=== PATIENT | female | born 1960 | race Caucasian/White ===

== ENCOUNTER 2016-07-10 21:09 | Observation (INO) | payer OTHER ==
[2016-07-10] MEDS ORDERED: NS 1,000 ML IV ONE (21:36)
[2016-07-10] MEDS ORDERED: IOPAMIDOL (ISOVUE-300) 100 ML BTL IV ONE (21:40)
[2016-07-10 21:49] LABS: % IMMATURE GRANULYOCYTES 0.3 % (0.0-1.1); ABSOLUTE IMMATURE GRANULOCYTES 0.03 10^3/uL (0.00-0.10); ADD DIFF? NO; ADD MORPH? NO; ADD SCAN? NO; ATYPICAL LYMPHOCYTE FLAG 10 (0-99); FRAGMENT RBC FLAG 0 (0-99); HEMATOCRIT 40.8 % (38.0-47.0); HEMOGLOBIN 14.2 g/dL (12.6-16.3); LEFT SHIFT FLG 0 (0-99); LIPEMIA HEMOLYSIS FLAG 90 (0-99); MEAN CELL HEMOGLOBIN 30.7 pg (27.9-34.1); MEAN CELL HEMOGLOBIN CONCENTR. 34.8 g/dL (32.4-36.7); MEAN CELL VOLUME 88.1 fL (81.5-99.8); MEAN PLATELET VOLUME 9.9 fL (8.7-11.7); PLATELET CLUMPS FLAG 0 (0-99); PLATELET COUNT 284 10^3/uL (150-400); RED BLOOD CELL COUNT 4.63 10^6/uL (4.18-5.33); RED CELL DISTRIBUTION WIDTH 12.4 % (11.5-15.2)
--- NOTE | 2016-07-10 21:51 | UCPHY ---
H & P Patient Type: Established Chief Complaint Nursing Narrative: Pt. states generalized abd pain started yesterday afternoon with chills that has continued today. Denies n/v/d as well as urinary s/s's. Today had nml stool. abd pain still generalized but chills have resolved. Time Seen by Provider: 07/10/16 21:27 HPI/ROS: Chief Complaint: Abdominal pain HPI: 55-year-old woman started having abdominal pain yesterday afternoon which has persisted to the day. It is diffuse dull aching, worse an 8/10. Currently a 4/10. Some improvement with ibuprofen. No nausea or vomiting or diarrhea. No constipation. No urinary urgency or frequency. Patient does not have a history of the same. No fevers or chills. Pain is worsened with walking and going over bumps improved no chest pain or shortness of breath. No history of prior surgeries. Patient is postmenopausal. ROS: 10 point Review of Systems is negative except as noted in the HPI. PMH: None Medications: None Allergies: No known drug allergies Social History: No smoking, no alcohol, no recreational drug use Family History: non-contributory Physical Exam: Gen: Awake, Alert, No Distress HEENT: Nose: no rhinorrhea Eyes: PERRLA, EOMI Mouth: Moist mucosa Neck: Supple, no JVD Chest: nontender, lungs clear to auscultation Heart: S1, S2 normal, no murmur Abd: Soft, tenderness in the left upper left lower and suprapubic region, most pronounced in the left lower quadrant. voluntary guarding, no rebound Back: no CVA tenderness, no midline tenderness Ext: no edema, non-tender Skin: no rash Neuro: CN II-XII intact, Sensation grossly intact, Strength 5/5 in bilateral upper and lower extremities - Medical/Surgical History Hx Asthma: No Hx Chronic Respiratory Disease: No Hx Diabetes: No Hx Cardiac Disease: No Hx Renal Disease: No Hx Cirrhosis: No Hx Alcoholism: No Hx HIV/AIDS: No Hx Splenectomy or Spleen Trauma: No Other PMH: TONSILECTOMY. SEASONAL ALLERGIES - Family History Significant Family History: No pertinent family hx - Social History Smoking Status: Never smoked Constitutional: Initial Vital Signs Temperature (C) 36.8 C 07/10/16 21:18 Heart Rate 94 07/10/16 21:18 Respiratory Rate 16 07/10/16 21:18 Blood Pressure 126/82 H 07/10/16 21:18 O2 Sat (%) 97 07/10/16 21:18 O2 Delivery Mode Room Air Allergies/Adverse Reactions: No Known Allergies Allergy (Verified 07/10/16 21:24) Home Medications: Medication Instructions Recorded NO HOME MEDS 12/10/09 Medical Decision Making - Diagnostics Imaging Results: CT abdomen pelvis interpreted by Dr. Stratton consistent with diverticulitis of the descending and sigmoid colon. Incidental finding of a large mass in the pelvis in the anterior aspect of the uterus which measures 12 cm x 10 cm x 7 cm. Imaging: Discussed imaging studies w/ bingo caller Radiologist ED Course/Re-evaluation: Patient with abdominal pain and clinically diverticulitis. CT scan confirms this. No evidence of perforation or abscess. Was concerning though she has a large pelvic mass. I have discussed with Dr. Mayorga, hospitalist. She will accept the patient transfer to [facility] for further workup and evaluation. - Data Points Laboratory Results: Laboratory Results 07/10/16 21:41 07/10/16 21:41 07/10/16 07/10/16 07/10/16 21:47 21:41 21:41 WBC RBC Hgb POC Hgb 15.0 gm/dL gm/dL (12.3-15.9) Hct POC Hct 44 % % (35.5-47.5) MCV MCH MCHC RDW Plt Count MPV Neut % (Auto) Lymph % (Auto) [place] % (Auto) Eos % (Auto) Baso % (Auto) Nucleat RBC Rel Count Absolute Neuts (auto) Absolute Lymphs (auto) Absolute Monos (auto) Absolute Eos (auto) Absolute Basos (auto) Absolute Nucleated RBC Immature Gran % Immature Gran # POC Sodium 141 mEq/L mEq/L (134-144) Sodium 140 mEq/L mEq/L (134-144) POC Potassium 3.3 mEq/L mEq/L (3.3-5.0) Potassium 3.6 mEq/L mEq/L (3.5-5.2) POC Chloride 104 mEq/L mEq/L (96-108) Chloride 101 mEq/L mEq/L (97-110) Carbon Dioxide 25 mEq/l mEq/l (22-31) Anion Gap 14 mEq/L mEq/L (8-16) POC BUN 15 mg/dL mg/dL (7-23) BUN 15 mg/dL mg/dL (7-23) Creatinine 0.8 mg/dL mg/dL (0.6-1.0) POC Creatinine 0.8 mg/dL mg/dL (0.6-1.2) Estimated GFR > 60 Glucose 106 mg/dL H mg/dL (70-100) POC Glucose 111 mg/dL H mg/dL (70-100) Calcium 9.4 mg/dL mg/dL (8.5-10.4) Total Bilirubin 0.9 mg/dL mg/dL (0.1-1.4) Conjugated Bilirubin 0.3 mg/dL mg/dL (0.0-0.5) Unconjugated Bilirubin 0.6 mg/dL mg/dL (0.0-1.1) AST 34 IU/L IU/L (14-46) ALT 47 IU/L IU/L (9-52) Alkaline Phosphatase 73 IU/L IU/L (38-126) Total Protein 6.6 g/dL g/dL (6.3-8.2) Albumin 3.6 g/dL g/dL (3.5-5.0) Lipase 78.0 IU/L IU/L (23-300) Urine Color YELLOW Urine Appearance HAZY Urine pH 5.5 (5.0-7.5) Ur Specific [place] 1.015 (1.002-1.030) Urine Protein NEGATIVE (NEGATIVE) Urine Ketones TRACE H (NEGATIVE) Urine Blood 1+ H (NEGATIVE) Urine Nitrate NEGATIVE (NEGATIVE) Urine Bilirubin NEGATIVE (NEGATIVE) Urine Urobilinogen 0.2 EU EU (0.2-1.0) Ur Leukocyte Esterase NEGATIVE (NEGATIVE) Urine RBC 1-3 /hpf /hpf (0-3) Urine WBC NONE SEEN /hpf /hpf (0-3) Ur Epithelial Cells 1+ /lpf /lpf (NONE-1+) Urine Bacteria TRACE /hpf H /hpf (NONE SEEN) Urine Mucus 2+ /lpf H /lpf (NONE-1+) Urine Glucose NEGATIVE (NEGATIVE) 07/10/16 21:41 WBC 8.87 10^3/uL 10^3/uL (3.80-9.50) RBC 4.63 10^6/uL 10^6/uL (4.18-5.33) Hgb 14.2 g/dL g/dL (12.6-16.3) POC Hgb Hct 40.8 % % (38.0-47.0) POC Hct MCV 88.1 fL fL (81.5-99.8) MCH 30.7 pg pg (27.9-34.1) MCHC 34.8 g/dL g/dL (32.4-36.7) RDW 12.4 % % (11.5-15.2) Plt Count 284 10^3/uL 10^3/uL (150-400) MPV 9.9 fL fL (8.7-11.7) Neut % (Auto) 63.5 % % (39.3-74.2) Lymph % (Auto) 24.4 % % (15.0-45.0) [place] % (Auto) 10.8 % % (4.5-13.0) Eos % (Auto) 0.5 % L % (0.6-7.6) Baso % (Auto) 0.5 % % (0.3-1.7) Nucleat RBC Rel Count 0.0 % % (0.0-0.2) Absolute Neuts (auto) 5.64 10^3/uL 10^3/uL (1.70-6.50) Absolute Lymphs (auto) 2.16 10^3/uL 10^3/uL (1.00-3.00) Absolute Monos (auto) 0.96 10^3/uL H 10^3/uL (0.30-0.80) Absolute Eos (auto) 0.04 10^3/uL 10^3/uL (0.03-0.40) Absolute Basos (auto) 0.04 10^3/uL 10^3/uL (0.02-0.10) Absolute Nucleated RBC 0.00 10^3/uL 10^3/uL (0-0.01) Immature Gran % 0.3 % % (0.0-1.1) Immature Gran # 0.03 10^3/uL 10^3/uL (0.00-0.10) POC Sodium Sodium POC Potassium Potassium POC Chloride Chloride Carbon Dioxide Anion Gap POC BUN BUN Creatinine POC Creatinine Estimated GFR Glucose POC Glucose Calcium Total Bilirubin Conjugated Bilirubin Unconjugated Bilirubin AST ALT Alkaline Phosphatase Total Protein Albumin Lipase Urine Color Urine Appearance Urine pH Ur Specific [place] Urine Protein Urine Ketones Urine Blood Urine Nitrate Urine Bilirubin Urine Urobilinogen Ur Leukocyte Esterase Urine RBC Urine WBC Ur Epithelial Cells Urine Bacteria Urine Mucus Urine Glucose Medications Given: Discontinued Medications Sodium Chloride (Ns) 1,000 mls @ 0 mls/hr IV ONCE ONE PRN Reason: Wide Open Stop: 07/10/16 21:37 Last Admin: 07/10/16 22:08 Dose: 1,000 mls Point of Care Test Results: 07/10/16 21:47 POC Sodium 141 POC Potassium 3.3 POC Chloride 104 POC BUN 15 POC Creatinine 0.8 POC Glucose 111 H Departure - Departure Disposition: [facility] Inpatient Acute Clinical Impression: Diverticulitis, Pelvic mass Condition: Fair Referrals: NONE *PRIMARY CARE P,. [Primary Care Provider] - As per Instructions - PQRS PQRS Measurement: NA
[2016-07-10 21:55] LABS: COLOR YELLOW; LEUKOCYTE ESTERASE,URINE NEGATIVE (NEGATIVE); NITRITE,URINE NEGATIVE (NEGATIVE); PH,URINE 5.5 (5.0-7.5)
[2016-07-10 22:03] LABS: ALANINE AMINOTRANSFERASE 47 IU/L (9-52); ALBUMIN 3.6 g/dL (3.5-5.0); ALKALINE PHOSPHATASE 73 IU/L (38-126); ANION GAP 14 mEq/L (8-16); ASPARTATE AMINOTRANSFERASE 34 IU/L (14-46); BILIRUBIN,TOTAL 0.9 mg/dL (0.1-1.4); BILIRUBIN-CONJUGATED 0.3 mg/dL (0.0-0.5); BILIRUBIN-UNCONJUGATED 0.6 mg/dL (0.0-1.1); CALCIUM 9.4 mg/dL (8.5-10.4); CARBON DIOXIDE 25 mEq/l (22-31); CHLORIDE 101 mEq/L (97-110); CREATININE 0.8 mg/dL (0.6-1.0); GLOMERULAR FILTRATION RATE > 60; GLUCOSE 106 mg/dL (70-100); POTASSIUM 3.6 mEq/L (3.5-5.2); SODIUM 140 mEq/L (134-144); TOTAL PROTEIN 6.6 g/dL (6.3-8.2)
[2016-07-10 22:04] LABS: BACTERIA TRACE /hpf (NONE SEEN); MUCUS 2+ /lpf (NONE-1+); WBC,URINE NONE SEEN /hpf (0-3)
[2016-07-11] MEDS ORDERED: ONDANSETRON 4 MG/2 ML VIAL IVP PRN (00:41)
[2016-07-11] MEDS ORDERED: ACETAMINOPHEN 325 MG TAB PO PRN (00:41)
[2016-07-11] MEDS ORDERED: IBUPROFEN 200 MG TAB PO PRN (00:41)
[2016-07-11] MEDS ORDERED: ONDANSETRON DISINTEGRATING 4 MG TAB PO PRN (00:41)
[2016-07-11] MEDS ORDERED: HYDROCODONE/APAP 5/325 TAB PO PRN (00:41)
[2016-07-11] MEDS: metroNIDAZOLE 500 MG TAB PO SCH ×2 (00:48→06:16)
[2016-07-11] MEDS: CIPROFLOXACIN 500 MG TAB PO SCH ×2 (00:48→09:52)
--- NOTE | 2016-07-11 00:48 | PDGENHP ---
History and Physical - Chief Complaint abdominal pain - History of Present Illness Patient is a 55 year old female with no significant past medical history who [place] [facility] [place] of [place]. Patient states her symptoms started yesterday with diffuse, crampy, intermittent abdominal discomfort and generalized malaise. By the evening, she had also developed chills and a subjective fever. This morning, she no longer felt febrile but did feel unwell and stayed home from work. She denies any associated nausea, vomiting, diarrhea or constipation, had a normal BM earlier in the day. By this evening, given the persistence of her symptoms, she decided to go to the [facility] [place]. Of note, patient reports last normal exam was 2 years ago, last colonoscopy was 5 years ago and normal. She is post-menopausal for about 5-6 years, denies any signs of post-menopausal bleeding. Her last [employer] exam was about 3-4 years ago, after which her [employer]INE[employer] retired and she hadn't established with a new one since that time. She denies any recent weight loss, night sweats, changes in urination or bowel movements. On arrival [place] [facility] [place] patient was afebrile and hemodynamically stable. Labs, including CBC, BMP, LFTs, were within normal limits. CT abd/pelvis was then obtained and revealed mild descending and sigmoid colon diverticulitis. CT also incidentally revealed a large heterogenous, lobulated anterior pelvic mass. Given these findings, she was transferred to [facility] for further evaluation. History Information - Allergies/Home Medication List Allergies/Adverse Reactions: No Known Allergies Allergy (Verified 07/10/16 21:24) Home Medications: NO HOME MEDS 12/10/09 [Last Taken Unknown] I have personally reviewed and updated: family history, medical history, social history, surgical history - Past Medical History no pertinent PMH - Surgical History Additional surgical history: tonsillectomy - Family History Additional family history: M: HLD. F: prostate ca, alzheimer's disease - Social History Smoking Status: Never smoked Alcohol Use: None Drug Use: None Additional social history: Patient lives with her , has 3 children. Works as a CPA. Review of Systems ROS: 10pt was reviewed & negative except for what was stated in HPI & below Physical Exam Temp Pulse Resp BP Pulse Ox 37.0 C 115 H 16 122/51 H 93 07/10/16 23:50 07/10/16 23:50 07/10/16 23:50 07/10/16 23:50 07/10/16 23:50 Constitutional: no apparent distress, appears nourished, not in pain Eyes: PERRL, anicteric sclera, EOMI Ears, Nose, Mouth, Throat: moist mucous membranes, hearing normal, ears appear normal, no oral mucosal ulcers Cardiovascular: regular rate and rhythym, no murmur, rub, or gallop, pulses symmetric bilaterally, No JVD, No edema Peripheral Pulses: 2+: dorsalis-pedis (R), dorsalis-pedis (L) Respiratory: no respiratory distress, no rales or rhonchi, clear to auscultation Gastrointestinal: normoactive bowel sounds, tenderness (mild tenderness/ guarding in LLQ) Genitourinary: no bladder fullness, no bladder tenderness Skin: warm, normal color, no rashes or abrasions, no fluctuance, no induration, No mottled Musculoskeletal: full muscle strength, no muscle tenderness, normal joint ROM, no joint effusions Neurologic: AAOx3, sensation intact bilaterally, CN II-XII Intact, No weakness, No numbness, No facial droop Psychiatric: interacting appropriately, not anxious, not encephalopathic, thought process linear Lab Data & Imaging Review 07/10/16 21:41 07/10/16 21:41 WBC 8.87 10^3/uL (3.80-9.50) 07/10/16 21:41 RBC 4.63 10^6/uL (4.18-5.33) 07/10/16 21:41 Hgb 14.2 g/dL (12.6-16.3) 07/10/16 21:41 POC Hgb 15.0 gm/dL (12.3-15.9) 07/10/16 21:47 Hct 40.8 % (38.0-47.0) 07/10/16 21:41 POC Hct 44 % (35.5-47.5) 07/10/16 21:47 MCV 88.1 fL (81.5-99.8) 07/10/16 21:41 MCH 30.7 pg (27.9-34.1) 07/10/16 21:41 MCHC 34.8 g/dL (32.4-36.7) 07/10/16 21:41 RDW 12.4 % (11.5-15.2) 07/10/16 21:41 Plt Count 284 10^3/uL (150-400) 07/10/16 21:41 MPV 9.9 fL (8.7-11.7) 07/10/16 21:41 Neut % (Auto) 63.5 % (39.3-74.2) 07/10/16 21:41 Lymph % (Auto) 24.4 % (15.0-45.0) 07/10/16 21:41 [place] % (Auto) 10.8 % (4.5-13.0) 07/10/16 21:41 Eos % (Auto) 0.5 % (0.6-7.6) L 07/10/16 21:41 Baso % (Auto) 0.5 % (0.3-1.7) 07/10/16 21:41 Nucleat RBC Rel Count 0.0 % (0.0-0.2) 07/10/16 21:41 Absolute Neuts (auto) 5.64 10^3/uL (1.70-6.50) 07/10/16 21:41 Absolute Lymphs (auto) 2.16 10^3/uL (1.00-3.00) 07/10/16 21:41 Absolute Monos (auto) 0.96 10^3/uL (0.30-0.80) H 07/10/16 21:41 Absolute Eos (auto) 0.04 10^3/uL (0.03-0.40) 07/10/16 21:41 Absolute Basos (auto) 0.04 10^3/uL (0.02-0.10) 07/10/16 21:41 Absolute Nucleated RBC 0.00 10^3/uL (0-0.01) 07/10/16 21:41 Immature Gran % 0.3 % (0.0-1.1) 07/10/16 21:41 Immature Gran # 0.03 10^3/uL (0.00-0.10) 07/10/16 21:41 POC Sodium 141 mEq/L (134-144) 07/10/16 21:47 Sodium 140 mEq/L (134-144) 07/10/16 21:41 POC Potassium 3.3 mEq/L (3.3-5.0) 07/10/16 21:47 Potassium 3.6 mEq/L (3.5-5.2) 07/10/16 21:41 POC Chloride 104 mEq/L (96-108) 07/10/16 21:47 Chloride 101 mEq/L (97-110) 07/10/16 21:41 Carbon Dioxide 25 mEq/l (22-31) 07/10/16 21:41 Anion Gap 14 mEq/L (8-16) 07/10/16 21:41 POC BUN 15 mg/dL (7-23) 07/10/16 21:47 BUN 15 mg/dL (7-23) 07/10/16 21:41 Creatinine 0.8 mg/dL (0.6-1.0) 07/10/16 21:41 POC Creatinine 0.8 mg/dL (0.6-1.2) 07/10/16 21:47 Estimated GFR > 60 07/10/16 21:41 Glucose 106 mg/dL (70-100) H 07/10/16 21:41 POC Glucose 111 mg/dL (70-100) H 07/10/16 21:47 Calcium 9.4 mg/dL (8.5-10.4) 07/10/16 21:41 Total Bilirubin 0.9 mg/dL (0.1-1.4) 07/10/16 21:41 Conjugated Bilirubin 0.3 mg/dL (0.0-0.5) 07/10/16 21:41 Unconjugated Bilirubin 0.6 mg/dL (0.0-1.1) 07/10/16 21:41 AST 34 IU/L (14-46) 07/10/16 21:41 ALT 47 IU/L (9-52) 07/10/16 21:41 Alkaline Phosphatase 73 IU/L (38-126) 07/10/16 21:41 Total Protein 6.6 g/dL (6.3-8.2) 07/10/16 21:41 Albumin 3.6 g/dL (3.5-5.0) 07/10/16 21:41 Lipase 78.0 IU/L (23-300) 07/10/16 21:41 Urine Color YELLOW 07/10/16 21:41 Urine Appearance HAZY 07/10/16 21:41 Urine pH 5.5 (5.0-7.5) 07/10/16 21:41 Ur Specific [place] 1.015 (1.002-1.030) 07/10/16 21:41 Urine Protein NEGATIVE (NEGATIVE) 07/10/16 21:41 Urine Ketones TRACE (NEGATIVE) H 07/10/16 21:41 Urine Blood 1+ (NEGATIVE) H 07/10/16 21:41 Urine Nitrate NEGATIVE (NEGATIVE) 07/10/16 21:41 Urine Bilirubin NEGATIVE (NEGATIVE) 07/10/16 21:41 Urine Urobilinogen 0.2 EU (0.2-1.0) 07/10/16 21:41 Ur Leukocyte Esterase NEGATIVE (NEGATIVE) 07/10/16 21:41 Urine RBC 1-3 /hpf (0-3) 07/10/16 21:41 Urine WBC NONE SEEN /hpf (0-3) 07/10/16 21:41 Ur Epithelial Cells 1+ /lpf (NONE-1+) 07/10/16 21:41 Urine Bacteria TRACE /hpf (NONE SEEN) H 07/10/16 21:41 Urine Mucus 2+ /lpf (NONE-1+) H 07/10/16 21:41 Urine Glucose NEGATIVE (NEGATIVE) 07/10/16 21:41 Visualized and Interpreted imaging results: Yes Interpretation: CT abd/pelvis: mild descending/sigmoid colon diverticulitis. Large anterior pelvic mass concerning for malignancy Assessment & Plan Assessment: Patient is a 55 year old female with no significant pmh who [place] [facility] [place] complaint of 2 days of abdominal pain. [facility] [place] revealed mild acute diverticulitis, as well as a new pelvic mass of unclear etiology, concerning for malignancy. Plan: # acute diverticulitis Patient is afebrile, without leukocytosis and mild symptoms of abdominal pain, no vomiting, diarrhea. This and the CT findings are consistent with a mild acute diverticulitis. Will treat with oral cipro, flagyl, as well treat pain prn. # pelvic mass Etiology of this mass is not clear at this time, although malignancy is high on the differential. Will obtain pelvic US to further evaluate the location of the mass with respect to the ovaries/uterus. Will also check CA-125. Will consult oncology. # dispo: admit to observation status # gen: regular diet DVT ppx: lovenox full code
[2016-07-11 05:00] LABS: % IMMATURE GRANULYOCYTES 0.3 % (0.0-1.1); ABSOLUTE IMMATURE GRANULOCYTES 0.02 10^3/uL (0.00-0.10); ADD DIFF? NO; ADD MORPH? NO; ADD SCAN? NO; ATYPICAL LYMPHOCYTE FLAG 0 (0-99); FRAGMENT RBC FLAG 0 (0-99); HEMATOCRIT 39.7 % (38.0-47.0); HEMOGLOBIN 13.5 g/dL (12.6-16.3); LEFT SHIFT FLG 0 (0-99); LIPEMIA HEMOLYSIS FLAG 90 (0-99); MEAN CELL HEMOGLOBIN 30.8 pg (27.9-34.1); MEAN CELL VOLUME 90.4 fL (81.5-99.8); MEAN PLATELET VOLUME 10.1 fL (8.7-11.7); PLATELET CLUMPS FLAG 10 (0-99); PLATELET COUNT 252 10^3/uL (150-400); RED BLOOD CELL COUNT 4.39 10^6/uL (4.18-5.33); RED CELL DISTRIBUTION WIDTH 12.4 % (11.5-15.2)
[2016-07-11 05:14] LABS: ALANINE AMINOTRANSFERASE 48 IU/L (9-52); ALBUMIN 3.5 g/dL (3.5-5.0); ALKALINE PHOSPHATASE 68 IU/L (38-126); ANION GAP 5 mEq/L (8-16); ASPARTATE AMINOTRANSFERASE 34 IU/L (14-46); BILIRUBIN,TOTAL 0.9 mg/dL (0.1-1.4); CALCIUM 9.4 mg/dL (8.5-10.4); CARBON DIOXIDE 24 mEq/l (22-31); CHLORIDE 110 mEq/L (97-110); CREATININE 0.7 mg/dL (0.6-1.0); GLOMERULAR FILTRATION RATE > 60; GLUCOSE 109 mg/dL (70-100); POTASSIUM 3.8 mEq/L (3.5-5.2); SODIUM 139 mEq/L (134-144); TOTAL PROTEIN 6.3 g/dL (6.3-8.2)
[2016-07-11 05:18] LABS: INR 1.15 (0.83-1.16); PROTIME(PATIENT) 14.7 SEC (12.0-15.0)
[2016-07-11 05:19] LABS: APTT 27.8 SEC (23.0-38.0)
[2016-07-11 05:42] LABS: CANCER ANTIGEN 125 25.2 U/mL (0-35)
[2016-07-11] MEDS ORDERED: ENOXAPARIN 40 MG/0.4 ML SYR SC SCH (09:00)
[2016-07-11 11:36] VITALS: BP 124/87; PULSE 89; RESP 16; TEMP 98.8; O2SAT 96
--- NOTE | 2016-07-11 12:54 | GDS ---
[f rep st] DISCHARGE SUMMARY DISCHARGE DIAGNOSES: 1. Abdominal pain, most likely due to diverticulitis. 2. Anterior pelvic mass of unclear etiology. HOSPITAL COURSE: 1. Abdominal pain due to diverticulitis: The patient was placed on observation and continued on or al Cipro and Flagyl. On day of discharge, she is tolerating a regular diet. Her pain is improved a nd she denies any fevers or chills. 2. 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 A CA 125 was done that was within normal range. Pelvic ultrasound was done on 07/11/2016 that showed this mass as well. Prior to discharge, I did discuss the case with Dr. Vesta Snowden from gynecology, who is recommending further outpatient followup either with her or with a freight booker/oncologic surgeon. I explained all of this to the patient, who verbalized understanding and understands the importance of further outpatient followup. PHYSICAL EXAM: VITAL SIGNS: On the day of discharge, blood pressure 124/87, pulse of 89, respirato ry rate 16, O2 sat 96% on room air, temperature afebrile. GENERAL: No acute distress. HEART: S1, S2. LUNGS: Clear. ABDOMEN: Soft, nontender, nondistended. No guarding or rebound tenderness. Normoactive bowel sounds. DISCHARGE MEDICATIONS: Please refer to discharge medication reconciliation in [facility]. DISCHARGE INSTRUCTIONS: The patient will be discharged from the hospital, where she should follow u p with Gynecology or Gynecology/Oncology as soon as possible. She should also follow up with her [facility] care provider in the next week or two for routine hospital followup regarding her diverticulit is. Copy requested to: Primary Care Provider /[id number]/MODL
[2016-07-12] MEDS ORDERED: MULTIVITAMINS 1 EACH TAB PO SCH (09:00)
== END 2016-07-11 12:27 | disposition home or self-care (01) ==
LOC: CED 21:09 → INTOOBSV 22:48 → CEDHOLD 22:48 → F3E 23:55
PROVIDERS: ADMIT Internal Medicine; ATTEND Internal Medicine
DX: K57.92 Diverticulitis of intestine, part unspecified, without perforation or abscess without bleeding (principal); R19.00 Intra-abdominal and pelvic swelling, mass and lump, unspecified site
CPT/HCPCS: 74177; 76856; G0378; 80048-PO; 80076-PO; 81003-PO; 81015-PO; 82947-QW; 83690-PO; 85025-PO; 86304-90; 96360-PO; G0463-PO; J1650; Q9967

== ENCOUNTER → 2016-07-28 | Outpatient (CLI) | payer OTHER | LOC: FIMAGING 07:42 | DX: Z12.31 Encounter for screening mammogram for malignant neoplasm of breast (principal) | CPT/HCPCS: G0202 ==

== ENCOUNTER → 2017-09-18 | Outpatient (CLI) | payer OTHER | LOC: FIMAGING 08:55 | DX: Z12.31 Encounter for screening mammogram for malignant neoplasm of breast (principal) ==